=== PATIENT | male | born 1985 | race Caucasian/White ===

== ENCOUNTER 2018-12-04 19:15 | Emergency (ER) | payer SELFPAY ==
[2018-12-04] MEDS ORDERED: Ibuprofen 600 MG Tab PO ONE (19:45)
[2018-12-04] MEDS ORDERED: Orphenadrine 100 MG Tab.ER PO STA (19:45)
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
[2018-12-04] MEDS ORDERED: FLU Vacc QS2019-20(6MOS+)/PF 60 MCG/0.5 ML SYRINGE IM ONE (20:15)
--- NOTE | 2018-12-05 07:01 | CR ---
Right shoulder: Three views of the right shoulder were obtained. Comparison: No previous shoulder study. Glenohumeral joint and acromioclavicular joint appears within normal limits. Slight scoliosis is partially visualized within the spine. No fracture, dislocation or other bony abnormality is seen. Impression: 1. Slight scoliosis. Nothing acute is appreciated on right shoulder study. Diagnostic code #2
== END 2018-12-04 20:50 | disposition home or self-care (01) ==
LOC: JD.ED 19:15
DX: S29.012A Strain of muscle and tendon of back wall of thorax, initial encounter (principal); E66.9 Obesity, unspecified; V53.5XXA Driver of pick-up truck or van injured in collision with car, pick-up truck or van in traffic accident, initial encounter; Y92.410 Unspecified street and highway as the place of occurrence of the external cause
CPT/HCPCS: 73030; 90471; 90686; 99283; A9270; G0008

== ENCOUNTER 2019-04-18 13:43 | Emergency (ER) | payer SELFPAY ==
--- NOTE | 2019-04-18 15:37 | EDM.PDOC ---
ED HPI GENERAL MEDICAL PROBLEM - General Chief Complaint: General Stated Complaint: BODYACHE Time Seen by Provider: 04/18/19 14:06 Source of Information: Reports: Patient History Limitations: Reports: No Limitations - History of Present Illness INITIAL COMMENTS - FREE TEXT/NARRATIVE: The patient presents with body aches. This started this morning. He also had chills but no fever when he arrived here. He has no ear pain, sore throat, cough, chest pain, shortness of breath, abdominal pain, nausea or vomiting. He has no dysuria. He has no medical problems. He has not been around anyone who is sick and he had no recent travel. He also had a headache. He has generalized weakness and fatigue. Onset: Gradual Duration: Hour(s): Location: Reports: Generalized Quality: Reports: Ache Severity: Moderate Improves with: Reports: None Worsens with: Reports: None Associated Symptoms: Reports: Fever/Chills, Headaches. Denies: Chest Pain, Cough, Nausea/Vomiting, Shortness of Breath Generalized Pain Score (Numeric/FACES): 7 - Related Data Allergies Allergy/AdvReac Type Severity Reaction Status Date / Time No Known Allergies Allergy Verified 04/18/19 14:08 Home Meds: Home Meds . [No Known Home Meds] 04/18/19 [History] Past Medical History - Past Health History Medical/Surgical History: Denies Medical/Surgical History Endocrine/Metabolic History: Reports: Obesity/BMI 30+ - Past Surgical History Male Surgical History: Reports: Varicocele Resection Social & Family History - Tobacco Use Smoking Status *Q: Never Smoker - Caffeine Use Caffeine Use: Reports: Coffee - Recreational Drug Use Recreational Drug Use: No - Living Situation & Occupation Living situation: Reports: , with Family (Mother) Occupation: Employed ([employer]) ED ROS GENERAL - Review of Systems Review Of Systems: See Below Constitutional: Reports: Weakness HEENT: Reports: No Symptoms Respiratory: Reports: No Symptoms Cardiovascular: Reports: No Symptoms Endocrine: Reports: No Symptoms GI/Abdominal: Reports: No Symptoms : Reports: No Symptoms Musculoskeletal: Reports: Muscle Stiffness ED EXAM, GENERAL - Physical Exam Exam: See Below Exam Limited By: No Limitations General Appearance: Alert, No Apparent Distress Ears: Normal External Exam Nose: Normal Inspection Throat/Mouth: Normal Inspection Head: Atraumatic, Normocephalic Neck: Normal Inspection, Supple, Non-Tender Respiratory/Chest: No Respiratory Distress, Lungs Clear, Normal Breath Sounds Cardiovascular: Regular Rate, Rhythm, No Edema, No Murmur GI/Abdominal: Soft, Non-Tender, No Organomegaly, No Mass Back Exam: Normal Inspection Extremities: Normal Inspection Course - Vital Signs Last Recorded V/S: Last Vital Signs Temp 98.2 F 04/18/19 14:05 Pulse 96 04/18/19 14:05 Resp 16 04/18/19 14:05 BP 136/94 H 04/18/19 14:05 Pulse Ox 94 L 04/18/19 14:05 - Re-Assessments/Exams Free Text/Narrative Re-Assessment/Exam: 04/18/19 15:36 I have ordered an influenza swab. 04/18/19 15:36 The swab was negative. Departure - Departure Time of Disposition: 15:45 Disposition: Home, Self-Care 01 Condition: Good Clinical Impression: Viral syndrome - Discharge Information *PRESCRIPTION DRUG MONITORING PROGRAM REVIEWED*: Not Applicable *COPY OF PRESCRIPTION DRUG MONITORING REPORT IN PATIENT SUKHWINDER: Not Applicable Referrals: PCP,Not In Area [Primary Care Provider] - Forms: ED Department Discharge, ED Return to Work/School Form Additional Instructions: Drink plenty of fluids. Take tylenol or motrin for pain, fever or chills. Please return if you are worse. Sepsis Event Note - Evaluation Sepsis Screening Result: No Definite Risk - Focused Exam Vital Signs: Vital Signs Temp Pulse Resp BP Pulse Ox 04/18/19 14:05 98.2 F 96 16 136/94 H 94 L Date Exam was Performed: 04/18/19 Time Exam was Performed: 15:41
== END 2019-04-18 16:02 | disposition home or self-care (01) ==
LOC: JD.ED 13:43
DX: B34.9 Viral infection, unspecified (principal); E66.9 Obesity, unspecified
CPT/HCPCS: 87804; 99282; 99284